=== PATIENT | male | born 1945 ===

== ENCOUNTER 2018-01-05 07:58 | Day surgery (SDC) | payer MEDICARE ==
[2018-01-05] MEDS ORDERED: ceFAZolin 1 gm in NS 1 GM/100 ML BAG IVPB ONE ×2 (09:56→10:22)
[2018-01-05] MEDS ORDERED: Bupivacaine HCl 0.5% PF (30 ml) Inj ONE (09:57)
[2018-01-05] MEDS ORDERED: Lidocaine 2% MPF (5 ml) Inj ONE ×2 (09:57→10:38)
[2018-01-05] MEDS ORDERED: Lactated Ringer's 1,000 ML IV ONE ×3 (10:10→13:00)
[2018-01-05] MEDS ORDERED: Propofol 10 mg/ml Inj (20 ML) ONE (10:31)
[2018-01-05] MEDS ORDERED: Midazolam 2 MG/2 ML VIAL ONE (10:31)
--- NOTE | 2018-01-05 11:22 | PCM.SURG1 ---
Surgeon's Initial Post Op Note - Surgeon's Notes Surgeon: Dr. Trivedi Board Machine Set Up Operator: Jose Luis Jalloh PGY2, Nicole Domingo PGY3, Jose Luis Soto PGY2 Type of Anesthesia: IV Sedation, Local (30cc 1:1 mixture 2% lidocaine plain & 0.5% marcaine plain) Anesthesia Administered By: Dr. Castorena Pre-Operative Diagnosis: 1) Right foot soft tissue lesion. 2) Left hallux onychomycosis. 3) Right hallux onychomycosis Operative Findings: See operative report. Materials: 4-0 vicryl, 3-0 nylon Post-Operative Diagnosis: Same as above Operation Performed: 1) Right foot removal of soft tissue lesion. 2) Left hallux total temporary nail avulsion. 3) Right hallux total temporary nail avulsion Specimen/Specimens Removed: 1) Right foot lesion. 2) Left hallucal nail. 3) Right hallucal nail Estimated Blood Loss: EBL {In ML}: 1 Blood Products Given: N/A Drains Used: No Drains Post-Op Condition: Good Date of Surgery/Procedure: 01/05/18 Time of Surgery/Procedure: 11:23
[2018-01-05] MEDS ORDERED: Oxycodone/Acetaminophen 5/325 mg Tab PO PRN ×2 (11:25)
[2018-01-05] MEDS ORDERED: HYDROmorphone 0.5 mg/0.5 ml ISec IVP PRN (11:31)
[2018-01-05] MEDS ORDERED: Lactated Ringer's 1,000 ML IV SCH (11:45)
[2018-01-05 13:14] VITALS: BP 115/75; PULSE 57; RESP 18; TEMP 98; O2SAT 100
--- NOTE | 2018-01-09 19:47 | PCM.OP ---
Operative Report - Operative Report Date of Surgery/Procedure: 01/05/18 Time of Surgery/Procedure: 11:19 Surgeon: Dr. Trivedi Glass Sander: Jose Luis Jalloh PGY2, Nicole Domingo PGY3, Jose Luis Soto PGY2 Anesthesia/Sedation: IV sedation with local Pre-Operative Diagnosis: 1) Right foot soft tissue lesion. 2) Left hallux onychomycosis. 3) Right hallux onychomycosis Post-Operative Diagnosis: 1) Right foot soft tissue lesion. 2) Left hallux onychomycosis. 3) Right hallux onychomycosis Indication for Surgery: Patient is a 72 year old male with the above mentioned diagnoses. Patient has exhausted conservative treatment at this time and now requests surgical intervention. Patient signed the consent after careful explanation of risks, benefits, alternatives, and complications to procedure and wishes to proceed. No guarantees were given nor implied. Operative Findings: See operative description Procedure/Operation Description: Preparation: The patient was brought into the operating room and placed on the operating room table in a supine position. Timeout was performed for identification of the correct patient and procedure. A pneumatic ankle tourniquet was placed on the right lower extremity in a supramalleolar position. After the induction of IV sedation, the patient received a total of 30 mL of a 1:1 mixture of 1% lidocaine plain and 0.5% marcaine plain in a proximal V fashion to the right plantar foot, and hallux block to both halluces. Once local anesthesia was achieved, the right foot was then prepped and draped in normal sterile manner and the procedure began. 1) Right foot removal of soft tissue lesion. Attention was directed to the plantar aspect of the right foot just proximal to the base of the 2nd digit, where it was noted to have a firm, raised soft tissue mass brown in color. Utilizing a #15 blade, an elliptical incision was made in a 3:1 ratio, encompassing the soft tissue lesion. The incision was continued down to subcutaneous tissue, with care taken to identify and retract all vital neurovascular structures. All bleeders were cauterized and ligated as necessary. The ellipse, including the central soft tissue lesion of concern, was excised and passed from the operative field to be sent to pathology. The wound was then irrigated with coprious amounts of sterile normal saline. The subcutaneous tissue was then reapproximated using 4-0 Vicryl, and skin 3-0 nylon. 2) Left hallux total temporary nail avulsion. Attention was directed to the left hallux. Using a freer elevator, the nail plate was freed from the nail bed and medial/lateral/proximal nail folds. Once freed, using a hemostat, the nail was freed and passed off the field to be sent to pathology. The wound was then flushed with copious amounts of sterile saline and dressed with bacitracin and a dry sterile dressing. 3) Right hallux total temporary nail avulsion. Attention was directed to the right hallux. Using a freer elevator, the nail plate was freed from the nail bed and medial/lateral/proximal nail folds. Once freed, using a hemostat, the nail was freed and passed off the field to be sent to pathology. The wound was then flushed with copious amounts of sterile saline and dressed with bacitracin and a dry sterile dressing. Estimated Blood Loss: 1 mL Complications: None Discharge & Condition: The patient tolerated anesthesia and the procedure well and was escorted to the recovery room with vital signs stable and neurovascular status intact to both lower extremities. The patient is to remain weightbearing to the heel in a surgical shoe to the right lower extremity, and may be full weightbearing to the left lower extremity. The patient will follow up with Dr. Trivedi in office.
== END 2018-01-05 14:20 | disposition home or self-care (01) ==
LOC: C.SDS 07:58
PROVIDERS: ATTEND Podiatrist Foot & Ankle Surgery
DX: M20.22 Hallux rigidus, left foot (principal); M20.5X2 Other deformities of toe(s) (acquired), left foot; L98.9 Disorder of the skin and subcutaneous tissue, unspecified; B35.1 Tinea unguium; M20.5X1 Other deformities of toe(s) (acquired), right foot; M20.21 Hallux rigidus, right foot
CPT/HCPCS: 28289; 88304; 88305; 88312; J0690; J2250; J2704; J3010; J7120